=== PATIENT | female | born 1995 | race Caucasian/White ===

== ENCOUNTER 2022-05-07 10:03 | Day surgery (SDC) | payer OTHER ==
[2022-03-25 09:51] VITALS: BMI 22.6
--- NOTE | 2022-05-07 08:54 | P.GSHP ---
History of Present Illness H&P Date: 05/07/22 CHIEF COMPLAINT: Colon screen HISTORY OF PRESENT ILLNESS: The patient is a 26-year-old female who presents for colon screen. Lower endoscopy was offered for further evaluation and management. PAST MEDICAL HISTORY: Please see list. PAST SURGICAL HISTORY: Please see list. MEDICATIONS: Please see list. ALLERGIES: Please see list. SOCIAL HISTORY: No illicit drug use FAMILY HISTORY: No reports of Crohn disease or ulcerative colitis. REVIEW OF ORGAN SYSTEMS: CONSTITUTIONAL: No reports of fevers or chills. PHYSICAL EXAM: VITAL SIGNS: Stable GENERAL: Well-developed pleasant in no acute distress. HEENT: No scleral icterus. Extraocular movements grossly intact. Moist buccal mucosa. NECK: Supple without lymphadenopathy. CHEST: Unlabored respirations. Equal bilateral excursions. CARDIOVASCULAR: Regular rate and rhythm. Distal 2+ pulses. ABDOMEN: Soft, nontender, nondistended. MUSCULOSKELETAL: No clubbing, cyanosis, or edema. ASSESSMENT: 1. Colon screen. PLAN: 1. Recommend proceeding with a lower endoscopy Past Medical History Past Medical History: GERD/Reflux Additional Past Medical History / Comment(s): ABD. PAIN AND BLEEDING WTH BM, hiatal hernia, frequent back pain, scoliosis, hx gestational diabetes., breast feeding., pain right hip -states bone on bone. History of Any Multi-Drug Resistant Organisms: None Reported Additional Past Surgical History / Comment(s): COLONOSCOPY Past Anesthesia/Blood Transfusion Reactions: No Reported Reaction Past Psychological History: ADD/ADHD, Anxiety, Bipolar, Depression Additional Psychological History / Comment(s): BORDERLINE PERSONALITY DISORDER Smoking Status: Former smoker Past Alcohol Use History: None Reported Additional Past Alcohol Use History / Comment(s): QUIT SMOKING DEC 2021 Past Drug Use History: Marijuana Additional Drug Use History / Comment(s): OCCASIONAL MARIJUANA USE-INSTRUCTED TO HOLD FOR AT LEAST 24 HOURS PRIOR TO PROCEDURE - Past Family History Mother Family Medical History: Cancer Medications and Allergies Home Medications Medication Instructions Recorded Confirmed Type Etonogestrel [Nexplanon] 68 mg SQ DIRECTED 05/06/22 05/06/22 History Allergies Allergy/AdvReac Type Severity Reaction Status Date / Time No Known Allergies Allergy Verified 05/06/22 15:05
[~2022-05-07 10:03] MED LIST: LACTATED RINGERS 1,000 ML IV SCH; LIDOCAINE 1% (10MG/ML) FOR IV START INTRADERMA PRN
[2022-05-07 11:41] VITALS: RESP 18; TEMP 97
[2022-05-07] MEDS ORDERED: PROPOFOL 10 MG/ML 20 ML VIAL IV ONE (12:39)
--- NOTE | 2022-05-07 13:04 | P.PCN ---
Date of Procedure: 05/07/22 Description of Procedure: PREOPERATIVE DIAGNOSIS: Rectal bleeding POSTOPERATIVE DIAGNOSIS: Poor prep OPERATION: Colonoscopy terminated at sigmoid colon due to solid stool, sigmoidoscopy SURGEON: Jazmin Stuart MD. ANESTHESIA: MAC. INDICATIONS: The patient is a 26-year-old female who presents with gastrointestinal bleeding. Benefits and risks were described and informed consent was obtained. DESCRIPTION OF PROCEDURE: The patient had undergone prep. She had been brought into the operating room and laid in the left lateral decubitus position. After adequate intravenous sedation, the rectum was examined with 2% lidocaine jelly. No external hemorrhoids were encountered. The rectal tone was loose. No lesions were palpated in the rectal vault. An Olympus colonoscope was advanced along the rectum to a very tortuous sigmoid colon. The scope was then exchanged for a pediatric colonoscope. The scope was passed to 30 cm from the anal verge with moderate solid stool identified for poor prep. The procedure was terminated due to poor prep. FINDINGS: [place]ronchik preparation quality scale 5 (1-5) Tortuous sigmoid colon No external prolapsed hemorrhoids. Scope advanced to sigmoid colon at 30 cm. Solid stool in sigmoid colon RECOMMENDATIONS: Repeat colonoscopy with appropriate prep Plan - Discharge Summary Discharge Rx Participant: No New Discharge Prescriptions: Continue Etonogestrel [Nexplanon] 68 mg SQ DIRECTED Discharge Medication List Etonogestrel [Nexplanon] 68 mg SQ DIRECTED 05/06/22 [History] Follow up Appointment(s)/Referral(s): Jazmin Stuart MD [STAFF PHYSICIAN] - 05/13/22 Patient Instructions/Handouts: Colonoscopy (DC) Discharge Disposition: HOME SELF-CARE
[2022-05-07 13:20] VITALS: BP 98/58; PULSE 68
== END 2022-05-07 13:39 | disposition home or self-care (01) ==
LOC: ORWHC2ENDO 10:03
PROVIDERS: ATTEND Surgery Plastic and Reconstructive Surgery
DX: K62.5 Hemorrhage of anus and rectum (principal); R10.9 Unspecified abdominal pain; Q43.8 Other specified congenital malformations of intestine; K21.9 Gastro-esophageal reflux disease without esophagitis; K44.9 Diaphragmatic hernia without obstruction or gangrene; M25.551 Pain in right hip; F90.9 Attention-deficit hyperactivity disorder, unspecified type; M41.9 Scoliosis, unspecified; F41.9 Anxiety disorder, unspecified; F31.9 Bipolar disorder, unspecified; F60.3 Borderline personality disorder; Z87.891 Personal history of nicotine dependence; Z80.9 Family history of malignant neoplasm, unspecified; Z79.899 Other long term (current) drug therapy
CPT/HCPCS: 81025; 45330; J2704

== ENCOUNTER 2023-06-08 19:53 | Emergency (ER) | payer OTHER ==
[2023-06-08 20:35] VITALS: TEMP 99
[2023-06-08] MEDS ORDERED: SODIUM CHLORIDE 0.9% 1,000 ML IV ONE (22:10)
--- NOTE | 2023-06-08 22:35 | ED ---
General Adult HPI - General Chief complaint: ENT Stated complaint: facial swelling/headache Time Seen by Provider: 06/08/23 21:10 Source: patient, RN notes reviewed Mode of arrival: ambulatory Limitations: no limitations - History of Present Illness Initial comments: 27-year-old female presents emergency Department with chief complaint of right- sided facial swelling, headache 2 days. She reports that she was evaluated at urgent care yesterday and was given a steroid shot. She reports the headache came on slowly and has been worsening throughout the day. She reports it as 9 out of 10 in pain. She states that she has not taken anything for pain. She has a history of headaches but this feels different from prior headaches. She reports swelling of her right-sided face and below the eye which has improved since yesterday. She also admits to fatigue and generalized malaise. - Related Data Home Medications Medication Instructions Recorded Confirmed Etonogestrel [Nexplanon] 68 mg SQ DIRECTED 05/06/22 06/04/22 Previous Rx's Medication Instructions Recorded Pantoprazole [Protonix] 40 mg PO DAILY #14 tab 06/04/22 Pantoprazole [Protonix] 40 mg PO DAILY #14 tab 07/01/22 Allergies Allergy/AdvReac Type Severity Reaction Status Date / Time No Known Allergies Allergy Verified 06/08/23 20:35 Review of Systems ROS Statement: Those systems with pertinent positive or pertinent negative responses have been documented in the HPI. ROS Other: All systems not noted in ROS Statement are negative. Past Medical History Past Medical History: GERD/Reflux Additional Past Medical History / Comment(s): ABD. PAIN AND BLEEDING WTH BM, hiatal hernia, frequent back pain, scoliosis, hx gestational diabetes., breast feeding., pain right hip -states bone on bone. History of Any Multi-Drug Resistant Organisms: None Reported Additional Past Surgical History / Comment(s): COLONOSCOPY Past Anesthesia/Blood Transfusion Reactions: No Reported Reaction Past Psychological History: ADD/ADHD, Anxiety, Bipolar, Depression Smoking Status: Former smoker, Vaper Past Alcohol Use History: None Reported Past Drug Use History: None Reported - Past Family History Mother Family Medical History: Cancer General Exam Limitations: no limitations General appearance: alert, in no apparent distress Head exam: Present: atraumatic, normocephalic, normal inspection Eye exam: Present: normal appearance, PERRL, EOMI, periorbital swelling. Absent: scleral icterus, conjunctival injection, periorbital tenderness ENT exam: Present: normal exam, normal oropharynx, mucous membranes moist, TM's normal bilaterally, normal external ear exam Neck exam: Present: normal inspection, full ROM. Absent: tenderness, meningismus (Negative Kernig's, Brudzinski), lymphadenopathy Respiratory exam: Present: normal lung sounds bilaterally. Absent: respiratory distress, wheezes, rales, rhonchi, stridor Cardiovascular Exam: Present: regular rate, normal rhythm, normal heart sounds. Absent: systolic murmur, diastolic murmur, rubs, gallop, clicks GI/Abdominal exam: Present: soft, normal bowel sounds. Absent: distended, tenderness, guarding, rebound, rigid Extremities exam: Present: normal inspection, full ROM, normal capillary refill. Absent: tenderness, pedal edema, joint swelling, calf tenderness Back exam: Present: normal inspection, full ROM. Absent: tenderness, CVA tenderness (R), CVA tenderness (L) Neurological exam: Present: alert, oriented X3, CN II-XII intact, normal gait Psychiatric exam: Present: normal affect, normal mood Skin exam: Present: warm, dry, intact, normal color. Absent: rash Course Vital Signs 06/08/23 06/09/23 20:30 00:29 Temperature 99.0 F Pulse Rate 91 66 Respiratory 20 18 Rate Blood Pressure 110/76 108/72 O2 Sat by Pulse 99 98 Oximetry Medical Decision Making - Medical Decision Making Was pt. sent in by a medical professional or institution (, PA, UI ARCHITECT, urgent care, hospital, or fpc...) When possible be specific @ -No Did you speak to anyone other than the patient for history (EMS, parent, family, police, friend...)? What history was obtained from this source @ -No Did you review nursing and triage notes (agree or disagree)? Why? @ -I reviewed and agree with nursing and triage notes Were old charts reviewed (outside hosp., previous admission, EMS record, old EKG, old radiological studies, urgent care reports/EKG's, fpc records)? Report findings @ -No old charts were reviewed Differential Diagnosis (chest pain, altered mental status, abdominal pain women, abdominal pain men, vaginal bleeding, weakness, fever, dyspnea, syncope, headache, dizziness, GI bleed, back pain, seizure, CVA, palpatations, mental health, musculoskeletal)? @ -Otitis media, otitis externa, viral URI, Covid, influenza, RSV, meningitis, subarachnoid hemorrhage, this list is not all-inclusive EKG interpreted by me (3pts min.). @ -None X-rays interpreted by me (1pt min.). @ -Chest x-ray shows no evidence for acute cardiopulmonary process CT interpreted by me (1pt min.). @ -CT brain shows no evidence of acute intracranial hemorrhage U/S interpreted by me (1pt. min.). @ -None done What testing was considered but not performed or refused? (CT, X-rays, U/S, labs)? Why? @ -None What meds were considered but not given or refused? Why? @ -None Did you discuss the management of the patient with other professionals (professionals i.e. , PA, UI ARCHITECT, lab, RT, psych nurse, social work lecturer, web programmer, teacher, adult parole officer, family independence case manager)? Give summary @ -No Was smoking cessation discussed for >3mins.? @ -No Was critical care preformed (if so, how long)? @ -No Were there social determinants of health that impacted care today? How? (Homelessness, low income, unemployed, alcoholism, drug addiction, transportation, low edu. Level, literacy, decrease access to med. care, detention, rehab)? @ -No Was there de-escalation of care discussed even if they declined (Discuss DNR or withdrawal of care, Hospice)? DNR status @ -No What co-morbidities impacted this encounter? (DM, HTN, Smoking, COPD, CAD, Cancer, CVA, ARF, Chemo, Hep., AIDS, mental health diagnosis, sleep apnea, morbid obesity)? @ -None Was patient admitted / discharged? Hospital course, mention meds given and route, prescriptions, significant lab abnormalities, going to OR and other pertinent info. @ -Discharged. Patient presented to emergency department with chief complaint of right-sided facial swelling and headache 2 days. She was evaluated at urgent care yesterday and was given a shot of steroids which improved the swelling and face. She states that she has been taking Benadryl but no other medications. She reports a headache that is progressively worsening over the past day and then constant. She has not taken anything to try to relieve this headache. On examination, patient is well-appearing, afebrile, negative Kernig's and Brudzinski signs, lungs CTA bilaterally, cardiac regular rate and rhythm, abdomen soft nontender, CN II through XII intact. Covid, influenza, RSV swab negative. CBC and CMP non actionable. X-ray shows no evidence of acute process. CT brain showed no evidence of acute intracranial process. Patient was advised of these findings and to follow-up with her primary care provider Dr. Ghotra. Patient is understanding and agreeable with the plan. Patient stable at time of discharge. Case discussed with my attending, Dr. Melgar Undiagnosed new problem with uncertain prognosis? @ -No Drug Therapy requiring intensive monitoring for toxicity (Heparin, Nitro, Insulin, Cardizem)? @ -No Were any procedures done? @ -No Diagnosis/symptom? @ -viral syndrome Acute, or Chronic, or Acute on Chronic? @ -acute Uncomplicated (without systemic symptoms) or Complicated (systemic symptoms)? @ -uncomplicated Side effects of treatment? @ -No Exacerbation, Progression, or Severe Exacerbation? @ -No Poses a threat to life or bodily function? How? (Chest pain, [place], [place], pneumonia, PE, COPD, DKA, ARF, appy, cholecystitis, CVA, Diverticulitis, Homicidal, Suicid al, threat to staff... and all critical care pts) @ -No - Lab Data Result diagrams: 06/08/23 22:27 06/08/23 22:27 Lab Results 06/08/23 06/08/23 06/08/23 Range/Units 21:51 22:27 22:27 WBC 11.0 H (3.8-10.6) k/uL RBC 4.60 (3.80-5.40) m/uL Hgb 13.5 (11.4-16.0) gm/dL Hct 40.0 (34.0-46.0) % MCV 86.9 (80.0-100.0) fL MCH 29.4 (25.0-35.0) pg MCHC 33.9 (31.0-37.0) g/dL RDW 12.8 (11.5-15.5) % Plt Count 171 (150-450) k/uL MPV 8.6 Neutrophils % 69 % Lymphocytes % 22 % Monocytes % 5 % Eosinophils % 2 % Basophils % 0 % Neutrophils # 7.6 (1.3-7.7) k/uL Lymphocytes # 2.4 (1.0-4.8) k/uL Monocytes # 0.6 (0-1.0) k/uL Eosinophils # 0.2 (0-0.7) k/uL Basophils # 0.0 (0-0.2) k/uL PT (9.0-12.0) sec INR (<1.2) APTT (22.0-30.0) sec Sodium 140 (137-145) mmol/L Potassium 3.6 (3.5-5.1) mmol/L Chloride 107 (98-107) mmol/L Carbon Dioxide 22 (22-30) mmol/L Anion Gap 11 mmol/L BUN 11 (7-17) mg/dL Creatinine 0.65 (0.52-1.04) mg/dL Est GFR (CKD-EPI)AfAm >90 (>60 ml/min/1.73 sqM) Est GFR (CKD-EPI)NonAf >90 (>60 ml/min/1.73 sqM) Glucose 117 H (74-99) mg/dL Plasma Lactic Acid Yassine (0.7-2.0) mmol/L Calcium 8.9 (8.4-10.2) mg/dL Total Bilirubin 0.3 (0.2-1.3) mg/dL AST 22 (14-36) U/L ALT 19 (4-34) U/L Alkaline Phosphatase 55 (38-126) U/L C-Reactive Protein <0.5 (<1.0) mg/dL Total Protein 7.6 (6.3-8.2) g/dL Albumin 4.5 (3.5-5.0) g/dL Influenza Type A (PCR) Not Detected (Not Detectd) Influenza Type B (PCR) Not Detected (Not Detectd) RSV (PCR) Not Detected (Not Detectd) SARS-CoV-2 (PCR) Not Detected (Not Detectd) 06/08/23 06/08/23 Range/Units 22:27 22:27 WBC (3.8-10.6) k/uL RBC (3.80-5.40) m/uL Hgb (11.4-16.0) gm/dL Hct (34.0-46.0) % MCV (80.0-100.0) fL MCH (25.0-35.0) pg MCHC (31.0-37.0) g/dL RDW (11.5-15.5) % Plt Count (150-450) k/uL MPV Neutrophils % % Lymphocytes % % Monocytes % % Eosinophils % % Basophils % % Neutrophils # (1.3-7.7) k/uL Lymphocytes # (1.0-4.8) k/uL Monocytes # (0-1.0) k/uL Eosinophils # (0-0.7) k/uL Basophils # (0-0.2) k/uL PT 10.2 (9.0-12.0) sec INR 1.0 (<1.2) APTT 23.0 (22.0-30.0) sec Sodium (137-145) mmol/L Potassium (3.5-5.1) mmol/L Chloride (98-107) mmol/L Carbon Dioxide (22-30) mmol/L Anion Gap mmol/L BUN (7-17) mg/dL Creatinine (0.52-1.04) mg/dL Est GFR (CKD-EPI)AfAm (>60 ml/min/1.73 sqM) Est GFR (CKD-EPI)NonAf (>60 ml/min/1.73 sqM) Glucose (74-99) mg/dL Plasma Lactic Acid Yassine 1.5 (0.7-2.0) mmol/L Calcium (8.4-10.2) mg/dL Total Bilirubin (0.2-1.3) mg/dL AST (14-36) U/L ALT (4-34) U/L Alkaline Phosphatase (38-126) U/L C-Reactive Protein (<1.0) mg/dL Total Protein (6.3-8.2) g/dL Albumin (3.5-5.0) g/dL Influenza Type A (PCR) (Not Detectd) Influenza Type B (PCR) (Not Detectd) RSV (PCR) (Not Detectd) SARS-CoV-2 (PCR) (Not Detectd) Disposition Clinical Impression: Viral syndrome Disposition: HOME SELF-CARE Condition: Stable Instructions (If sedation given, give patient instructions): Viral Syndrome (ED) Additional Instructions: Please follow up with Dr. Ghotra. Return to the emergency department for new or worsening symptoms. Is patient prescribed a controlled substance at d/c from ED?: No Referrals: Nicholas Ghotra MD [Primary Care Provider] - 1-2 days Time of Disposition: 00:12
[2023-06-08 22:50] LABS: Basophils % (A) 0 %; Eosinophils # (A) 0.2 k/uL (0-0.7); Eosinophils % (A) 2 %; HGB 13.5 gm/dL (11.4-16.0); Lymphocytes # (A) 2.4 k/uL (1.0-4.8); Lymphocytes % (A) 22 %; MCH 29.4 pg (25.0-35.0); MCHC 33.9 g/dL (31.0-37.0); MCV 86.9 fL (80.0-100.0); Mean Platelet Volume 8.6; Monocytes # (A) 0.6 k/uL (0-1.0); Monocytes % (A) 5 %; Neutrophils # (A) 7.6 k/uL (1.3-7.7); Neutrophils % (A) 69 %; Platelet Count 171 k/uL (150-450); RDW 12.8 % (11.5-15.5)
[2023-06-08 23:01] LABS: Prothrombin Time 10.2 sec (9.0-12.0)
[2023-06-08 23:04] LABS: ALT 19 U/L (4-34); AST 22 U/L (14-36); African American GFR (CKD) >90 (>60 ml/min/1.73 sqM); Albumin 4.5 g/dL (3.5-5.0); Alkaline Phosphatase 55 U/L (38-126); Anion Gap 11 mmol/L; Blood Urea Nitrogen 11 mg/dL (7-17); C Reactive Protein <0.5 mg/dL (<1.0); Calcium 8.9 mg/dL (8.4-10.2); Carbon Dioxide 22 mmol/L (22-30); Chloride 107 mmol/L (98-107); Glucose 117 mg/dL (74-99); Non-African American GFR(CKD) >90 (>60 ml/min/1.73 sqM); Potassium 3.6 mmol/L (3.5-5.1); Sodium 140 mmol/L (137-145); Total Bilirubin 0.3 mg/dL (0.2-1.3); Total Protein 7.6 g/dL (6.3-8.2)
--- NOTE | 2023-06-08 23:07 | XR ---
EXAM: XR Chest, 2 Views CLINICAL HISTORY: ITS.REASON XR Reason: sob TECHNIQUE: Frontal and lateral views of the chest. COMPARISON: No relevant prior studies available. FINDINGS: Lungs: Unremarkable. No consolidation. Pleural space: Unremarkable. No pneumothorax. Heart: Unremarkable. No cardiomegaly. Mediastinum: Unremarkable. Bones/joints: Unremarkable. IMPRESSION: Normal chest x-rays.
--- NOTE | 2023-06-08 23:28 | CT ---
EXAM: CT Head Without Intravenous Contrast CLINICAL HISTORY: ITS.REASON CT Reason: pain TECHNIQUE: Axial computed tomography images of the head/brain without intravenous contrast. CTDI is 49.2 mGy and DLP is 1144.4 mGy-cm. This CT exam was performed using one or more of the following dose reduction techniques: automated exposure control, adjustment of the mA and/or kV according to patient size, and/or use of iterative reconstruction technique. COMPARISON: No relevant prior studies available. FINDINGS: No acute intracranial hemorrhage. No midline shift or mass effect. The territorial acosta-white matter differentiation is maintained throughout. The ventricles and sulci are commensurate with age. The visualized orbits appear grossly unremarkable. The calvarium is intact. The visualized paranasal sinuses and mastoid air cells are grossly clear. IMPRESSION: No acute intracranial hemorrhage, midline shift, or mass effect.
[2023-06-09 00:30] VITALS: BP 108/72; PULSE 66; RESP 18
[2023-06-09 00:53] LABS: Amorphous Sediment,Urine Rare /hpf; Appearance,Urine Cloudy (Clear); Bacteria,Urine Moderate /hpf; Bilirubin,Urine Negative (Negative); Blood,Urine Large (Negative); Color,Urine Yellow; Glucose,Urine (UA) 1+ (Negative); Ketones,Urine Negative (Negative); Leukocyte Esterase,Urine Negative (Negative); Mucus,Urine Occasional /hpf; Nitrite,Urine Negative (Negative); Protein,Urine Trace (Negative); RBC,Urine 2 /hpf (0-5); Specific Gravity,Urine 1.028 (1.001-1.035); Squamous Epithelial Cell,Urine 21 /hpf (0-4); Urobilinogen,Urine <2.0 mg/dL (<2.0); WBC,Urine 2 /hpf (0-5)
== END 2023-06-09 00:30 | disposition home or self-care (01) ==
LOC: EC 19:53
DX: B34.9 Viral infection, unspecified (principal); F17.290 Nicotine dependence, other tobacco product, uncomplicated; Z20.822 Contact with and (suspected) exposure to COVID-19
CPT/HCPCS: 36415; 70450; 71046; 80053; 81001; 81025; 83605; 85025; 85610; 85730; 86140; 87636; 96360; 96361; 99284

== ENCOUNTER 2024-01-31 12:38 | Emergency (ER) | payer OTHER ==
--- NOTE | 2024-01-31 13:06 | ED ---
Back Pain HPI - General Source: patient, RN notes reviewed <Radha Cortés - Last Filed: 01/31/24 13:05> - General Source: patient, RN notes reviewed Mode of arrival: ambulatory Limitations: no limitations <Mabel Brannon - Last Filed: 01/31/24 16:09> - General Stated Complaint: Back Pain Time Seen by Provider: 01/31/24 12:50 - History of Present Illness Initial Comments: Notethis is a 28-year-old female with complaint of back pain in her thoracic and lumbar region patient denies fall or injury, states that pain has been ongoing for the past few years but is worse with movement over the past week. Patient has a history of scoliosis due to a broken hip when she was 19. Denies saddle anesthesias, paresthesias, loss of bladder or bowel incontinence. (Radha Cortés) 28-year-old female presenting to the ER with chief complaint of back pain. P atient states she has scoliosis due to a hip injury and using crutches about 10 years ago. She reports for the past week her back pain has been exacerbated. She reports most of her pain is in her lumbar region. She states movements make it worse. No known injuries or traumas. She has been using [id number] Tylenol and Motrin and lidocaine patches without relief. She states that she was scheduled for an MRI on Thursday but was unable to attend the appointment due to work. She denies any fevers, chills, saddle paresthesias, bowel or bladder incontinence. (Mabel Brannon) - Related Data Home Medications Medication Instructions Recorded Confirmed Etonogestrel [Nexplanon] 68 mg SQ DIRECTED 05/06/22 06/04/22 Previous Rx's Medication Instructions Recorded Pantoprazole [Protonix] 40 mg PO DAILY #14 tab 06/04/22 Pantoprazole [Protonix] 40 mg PO DAILY #14 tab 07/01/22 Cyclobenzaprine [Flexeril] 5 mg PO TID PRN #15 tablet 01/31/24 Lidocaine 5% Patch [Lidoderm 5% 1 patch TOPICAL DAILY #10 patch 01/31/24 Patch] predniSONE 50 mg PO DAILY #5 tab 01/31/24 Allergies Allergy/AdvReac Type Severity Reaction Status Date / Time No Known Allergies Allergy Verified 06/08/23 20:35 Review of Systems ROS Other: All systems not noted in ROS Statement are negative. <Radha Cortés - Last Filed: 01/31/24 13:05> ROS Other: All systems not noted in ROS Statement are negative. <Mabel Brannon - Last Filed: 01/31/24 16:09> ROS Statement: Those systems with pertinent positive or pertinent negative responses have been documented in the HPI. Past Medical History Past Medical History: GERD/Reflux Additional Past Medical History / Comment(s): ABD. PAIN AND BLEEDING WTH BM, hiatal hernia, frequent back pain, scoliosis, hx gestational diabetes., breast feeding., pain right hip -states bone on bone. History of Any Multi-Drug Resistant Organisms: None Reported Additional Past Surgical History / Comment(s): COLONOSCOPY Past Anesthesia/Blood Transfusion Reactions: No Reported Reaction Past Psychological History: ADD/ADHD, Anxiety, Bipolar, Depression Smoking Status: Former smoker, Vaper Past Alcohol Use History: None Reported Past Drug Use History: None Reported - Past Family History Mother Family Medical History: Cancer <Radha Cortés - Last Filed: 01/31/24 13:05> General Exam <Radha Cortés - Last Filed: 01/31/24 13:05> General appearance: alert, in no apparent distress Head exam: Present: atraumatic, normocephalic, normal inspection Respiratory exam: Present: normal lung sounds bilaterally. Absent: respiratory distress, wheezes, rales, rhonchi, stridor Cardiovascular Exam: Present: regular rate, normal rhythm, normal heart sounds. Absent: systolic murmur, diastolic murmur, rubs, gallop, clicks Extremities exam: Present: normal inspection, full ROM, normal capillary refill. Absent: tenderness, pedal edema, joint swelling, calf tenderness Back exam: Present: normal inspection, tenderness (Lumbar paraspinal muscles. Pain with bilateral straight leg raise. 2+ bilateral dorsalis pedis pulse. sensation intact. Strength is equal) Psychiatric exam: Present: normal affect, normal mood <Mabel Brannon - Last Filed: 01/31/24 16:09> - General Exam Comments Initial Comments: Visual Physical Exam Vital signs reviewed General: Well-appearing, nontoxic, no acute distress. Head: Normocephalic, atraumatic Eyes: PERRLA, EOMI ENT: Airway patent Chest: Nonlabored breathing Skin: No visual rash, normal skin tone Neuro: Alert and oriented 3 Musculoskeletal: No gross abnormalities (Radha Cortés) Course Vital Signs 01/31/24 13:36 Temperature 97.7 F Pulse Rate 85 Respiratory 20 Rate Blood Pressure 116/82 O2 Sat by Pulse 20 L Oximetry Medical Decision Making <Radha Cortés - Last Filed: 01/31/24 13:05> - Radiology Data Radiology results: report reviewed, image reviewed <Mabel Brannon - Last Filed: 01/31/24 16:09> - Medical Decision Making I completed the quick note portion of this chart signed Radha Cortés PA-C (Radha Cortés) Was pt. sent in by a medical professional or institution (AUBREE Jansen, FEATHER SEPARATOR, urgent care, hospital, or longterm...) When possible be specific @ -No Did you speak to anyone other than the patient for history (EMS, parent, family, police, friend...)? What history was obtained from this source @ -No Did you review nursing and triage notes (agree or disagree)? Why? @ -I reviewed and agree with nursing and triage notes Were old charts reviewed (outside hosp., previous admission, EMS record, old EKG, old radiological studies, urgent care reports/EKG's, longterm records)? Report findings @ -No old charts were reviewed Differential Diagnosis (chest pain, altered mental status, abdominal pain women, abdominal pain men, vaginal bleeding, weakness, fever, dyspnea, syncope, headache, dizziness, GI bleed, back pain, seizure, CVA, palpatations, mental health, musculoskeletal)? @ -Differential Back Pain:Strain, zoster, cauda equina syndrome, epidural abscess, vertebral osteomyelitis, discitis, fracture, subluxation, disc herniation, DJD, spinal stenosis, dissection, AAA, pancreatitis, peptic ulcer disease, pyelonephritis, kidney stone, this is not meant to be an all-inclusive list. EKG interpreted by me (3pts min.). @ -None X-rays interpreted by me (1pt min.). @ -Spinal x-ray interpreted by me negative for acute process. CT interpreted by me (1pt min.). @ -None done U/S interpreted by me (1pt. min.). @ -None done What testing was considered but not performed or refused? (CT, X-rays, U/S, labs)? Why? @ -None What meds were considered but not given or refused? Why? @ -None Did you discuss the management of the patient with other professionals (professionals i.e. , PA, FEATHER SEPARATOR, lab, RT, psych nurse, geriatric social work professor, dairy clerk, teacher, labor relations officer, family service caseworker)? Give summary @ -No Was smoking cessation discussed for >3mins.? @ -No Was critical care preformed (if so, how long)? @ -No Were there social determinants of health that impacted care today? How? (Homelessness, low income, unemployed, alcoholism, drug addiction, transportation, low edu. Level, literacy, decrease access to med. care, [facility], rehab)? @ -No Was there de-escalation of care discussed even if they declined (Discuss DNR or withdrawal of care, Hospice)? DNR status @ -No What co-morbidities impacted this encounter? (DM, HTN, Smoking, COPD, CAD, Cancer, CVA, ARF, Chemo, Hep., AIDS, mental health diagnosis, sleep apnea, morbid obesity)? @ -None Was patient admitted / discharged? Hospital course, mention meds given and route, prescriptions, significant lab abnormalities, going to OR and other pertinent info. @ -Discharge. 28-year-old female presented to the ER with chief complaint of back pain. History and physical exam completed. Vitals stable. Patient in no signs of acute distress and nontoxic-appearing. No acute neurological findings on exam. Bilateral lower extremities neurovascularly intact. No red flag back pain symptoms indicative of cauda equina syndrome. Patient received by mouth Tylenol for pain control in the ER. X-rays obtained negative for acute process. Results discussed with patient, all questions answered. Prednisone, Flexeril and lidocaine patches prescribed. I advised her to follow-up with physician who ordered MRI of the back in the next 1 to 2 days. Strict return parameters discussed. Patient discharged stable condition with follow-up to PCP. Patient verbally expressed understanding and agreement with care plan. Case discussed with ED attending, Dr. Moran. Undiagnosed new problem with uncertain prognosis? @ -No Drug Therapy requiring intensive monitoring for toxicity (Heparin, Nitro, Insulin, Cardizem)? @ -No Were any procedures done? @ -No Diagnosis/symptom? @ -Back pain Acute, or Chronic, or Acute on Chronic? @ -Acute Uncomplicated (without systemic symptoms) or Complicated (systemic symptoms)? @ -Uncomplicated Side effects of treatment? @ -No Exacerbation, Progression, or Severe Exacerbation? @ -No Poses a threat to life or bodily function? How? (Chest pain, [place], IA, pneumonia, PE, COPD, DKA, ARF, appy, cholecystitis, CVA, Diverticulitis, Homicidal, Pinky cidal, threat to staff... and all critical care pts) @ -No (Mabel Brannon) Disposition <Radha Cortés - Last Filed: 01/31/24 13:05> Is patient prescribed a controlled substance at d/c from ED?: No Time of Disposition: 15:56 <Mabel Brannon - Last Filed: 01/31/24 16:09> Clinical Impression: Back pain Disposition: HOME SELF-CARE Condition: Stable Instructions (If sedation given, give patient instructions): Acute Low Back Pain (ED) Additional Instructions: Follow-up with back specialist to reschedule MRI. Return to the ER for new or worsening concerns. Prescriptions: Cyclobenzaprine [Flexeril] 5 mg PO TID PRN #15 tablet PRN Reason: Muscle Spasm Lidocaine 5% Patch [Lidoderm 5% Patch] 1 patch TOPICAL DAILY #10 patch predniSONE 50 mg PO DAILY #5 tab Referrals: Nicholas Ghotra MD [Primary Care Provider] - 1-2 days
--- NOTE | 2024-01-31 13:35 | XR ---
EXAMINATION TYPE: XR spine complete AP and Lat DATE OF EXAM: 01/31/2024 1:30 PM CLINICAL INDICATION:Female, 28 years old with history of pain; [facility] COMPARISON: None TECHNIQUE: XR spine complete AP and Lat views of the spine in Frontal and lateral projections. FINDINGS: No evidence of acute fracture. There is no evidence of disk space narrowing or loss of vertebral bod y height. There is normal alignment of the thoracic vertebral bodies. IMPRESSION: No acute osseous pathology.
[2024-01-31] MEDS: ACETAMINOPHEN TAB 325 MG TAB PO STA (15:59)
[2024-01-31 16:42] VITALS: BP 120/78; PULSE 78; RESP 18; TEMP 98.1
== END 2024-01-31 16:04 | disposition home or self-care (01) ==
LOC: EC 12:38
DX: M54.50 Low back pain, unspecified (principal); M54.6 Pain in thoracic spine; F17.290 Nicotine dependence, other tobacco product, uncomplicated
CPT/HCPCS: 72082; 99283

== ENCOUNTER 2024-08-13 22:48 | Emergency (ER) | payer SELFPAY ==
[2024-08-13 22:55] VITALS: TEMP 97.7
--- NOTE | 2024-08-13 23:06 | ED ---
Fall HPI - General Chief Complaint: Fall Stated Complaint: Fall/LOC Time Seen by Provider: 08/13/24 22:49 Source: patient, EMS, RN notes reviewed Mode of arrival: EMS Limitations: no limitations - History of Present Illness Initial Comments: This is a 29-year-old female who presents to the emergency department for a fall. Patient was at the bar with her friends this evening and after consuming alcohol she fell and hit her head on a metal bar of a chair. Bystanders report a loss of consciousness. They are unsure how long she was unconscious for. Re ports a headache and nausea as well as photophobia. However, states that she has a history of chronic migraines and believes she may also have one of these flaring up on her, contributing to her symptoms. She was given Zofran en route by EMS with some improvement in nausea. Denies sustaining any additional injuries or having any other complaints at this time. MD Complaint: fall - Related Data Home Medications Medication Instructions Recorded Confirmed Etonogestrel [Nexplanon] 68 mg SQ DIRECTED 05/06/22 06/04/22 Previous Rx's Medication Instructions Recorded Pantoprazole [Protonix] 40 mg PO DAILY #14 tab 06/04/22 Pantoprazole [Protonix] 40 mg PO DAILY #14 tab 07/01/22 Cyclobenzaprine [Flexeril] 5 mg PO TID PRN #15 tablet 01/31/24 Lidocaine 5% Patch [Lidoderm 5% 1 patch TOPICAL DAILY #10 patch 01/31/24 Patch] predniSONE 50 mg PO DAILY #5 tab 01/31/24 Allergies Allergy/AdvReac Type Severity Reaction Status Date / Time Latex, Natural Rubber Allergy Rash/Hives Verified 08/13/24 22:55 Review of Systems ROS Statement: Those systems with pertinent positive or pertinent negative responses have been documented in the HPI. ROS Other: All systems not noted in ROS Statement are negative. Past Medical History Past Medical History: GERD/Reflux Additional Past Medical History / Comment(s): ABD. PAIN AND BLEEDING WTH BM, hiatal hernia, frequent back pain, scoliosis, hx gestational diabetes., breast feeding., pain right hip -states bone on bone. History of Any Multi-Drug Resistant Organisms: None Reported Additional Past Surgical History / Comment(s): COLONOSCOPY Past Anesthesia/Blood Transfusion Reactions: No Reported Reaction Past Psychological History: ADD/ADHD, Anxiety, Bipolar, Depression Smoking Status: Former smoker, Vaper Past Alcohol Use History: None Reported Past Drug Use History: None Reported - Past Family History Mother Family Medical History: Cancer General Exam General appearance: alert, in no apparent distress Head exam: Present: atraumatic Eye exam: Present: normal appearance, PERRL, EOMI. Absent: scleral icterus, conjunctival injection, periorbital swelling Respiratory exam: Present: normal lung sounds bilaterally. Absent: respiratory distress, wheezes, rales, rhonchi, stridor Cardiovascular Exam: Present: regular rate, normal rhythm, normal heart sounds. Absent: systolic murmur, diastolic murmur, rubs, gallop, clicks Neurological exam: Present: alert, oriented X3, CN II-XII intact Psychiatric exam: Present: normal affect, normal mood Skin exam: Present: warm, dry, intact, normal color. Absent: rash Course Vital Signs 08/13/24 08/14/24 08/14/24 22:49 01:10 01:31 Temperature 97.7 F Pulse Rate 106 H 88 Respiratory 17 16 Rate Blood Pressure 102/62 113/73 108/72 O2 Sat by Pulse 99 98 Oximetry Medical Decision Making - Medical Decision Making This is a 29 year old female who presents to the emergency department for a head injury. Was pt. sent in by a medical professional or institution? @ -No Did you speak to anyone other than the patient for history? @ -No Did you review nursing and triage notes? @ -Yes, and I agree, it is accurate with regards to the patient's symptoms. Were old charts reviewed? @ -No Differential Diagnosis? @ -Differential Diagnosis Head Injury: Contusion, hematoma, intracranial hemorrhage, skull fracture, whiplash, concussion, this is not meant to be an all-inclusive list. EKG interpreted by me (3pts min.)? @ -Not obtained X-rays interpreted by me (1pt min.)? @ -Not obtained CT interpreted by me (1pt min.)? @ -Computed tomography scan of the brain and c-spine obtained. My interpretation identifies no evidence of an acute intracranial hemorrhage, skull fracture, or cervical spine fracture. U/S interpreted by me (1pt. min.)? @ -Not obtained What testing was considered but not performed? (CT, X-rays, U/S, labs)? Why? @ -None What meds were considered but not given? Why? @ -None Did you discuss the management of the patient with other professionals? @ -No Did you reconcile home meds? @ -No Was smoking cessation discussed for >3mins.? @ -No Was critical care preformed (if so, how long)? @ -No Were there social determinants of health that impacted care today? How? (Homelessness, low income, unemployed, alcoholism, drug addiction, transportation, low edu. Level, literacy, decrease access to med. care, alf, rehab)? @ -No Was there de-escalation of care discussed even if they declined? (Discuss DNR or withdrawal of care, Hospice)? @ -No What co-morbidities impacted this encounter? (DM, HTN, Smoking, COPD, CAD, Cancer, CVA, Hep., AIDS, mental health diagnosis, sleep apnea, morbid obesity)? @ -None Was patient admitted / discharged? @ -Discharged. CT scan of the brain and C-spine obtained revealing no acute process. Headache was managed in the emergency department. She was up and ambulating without difficulty. She was also tolerating oral intake. Advised ibuprofen and Tylenol as needed for any additional headaches. Patient discharged home with her friends in stable condition. Case discussed with ED attending Dr. Guillen. Return precautions reviewed in depth, the patient is instructed to return to the emergency department with any new, worsening, or concerning symptoms. Patient verbalized understanding. Undiagnosed new problem with uncertain prognosis? @ -None Drug Therapy requiring intensive monitoring for toxicity (Heparin, Nitro, Insulin, Cardizem)? @ -None Were any procedures done? @ -None Diagnosis/symptom? @ -Fall, head injury Acute, or Chronic, or Acute on Chronic? @ -Acute Uncomplicated (without systemic symptoms) or Complicated (systemic symptoms)? @ -Uncomplicated Side effects of treatment? @ -None Exacerbation, Progression, or Severe Exacerbation] @ -Not applicable Poses a threat to life or bodily function? @ -No - Radiology Data Radiology results: report reviewed, image reviewed Disposition Clinical Impression: Fall, Head injury Disposition: HOME SELF-CARE Instructions (If sedation given, give patient instructions): Head Injury (ED) Additional Instructions: Return to the emergency department with any new, worsening, or concerning symptoms. Alternate with ibuprofen and Tylenol as needed for pain relief. Follow up with your primary care provider in 1-2 days. Is patient prescribed a controlled substance at d/c from ED?: No Referrals: Nicholas Ghotra MD [Primary Care Provider] - 1-2 days Time of Disposition: 01:37
[2024-08-13] MEDS: KETOROLAC 15 MG/ML 1 ML VIAL IVP STA (23:19)
[2024-08-13] MEDS: ONDANSETRON 4 MG/2 ML VIAL IVP STA (23:19)
[2024-08-13] MEDS: SODIUM CHLORIDE 0.9% 1,000 ML IV STA (23:21)
[2024-08-13] MEDS: ACETAMINOPHEN IV (For NPO) 1,000 MG in EMPTY BAG 1 BAG IVPB STA (23:22)
--- NOTE | 2024-08-14 00:50 | CT ---
EXAM: CT Head Without Intravenous Contrast CLINICAL HISTORY: CT Reason: Head injury TECHNIQUE: Axial computed tomography images of the head/brain without intravenous contrast. CTDI is 45.3 mGy and DLP is 1147 mGy-cm. This CT exam was performed using one or more of the following dose reduction techniques: automated exposure control, adjustment of the mA and/or kV according to patient size, and/or use of iterative reconstruction technique. COMPARISON: June 08, 2023 FINDINGS: Brain: Unremarkable. No hemorrhage. No significant white matter disease. No edema. Ventricles: Unremarkable. No ventriculomegaly. Bones/joints: Unremarkable. No acute fracture. Soft tissues: Unremarkable. Sinuses: Mucosal thickening in the maxillary, sphenoid, and right ethmoid sinuses, increased since previous suggesting acute on chronic sinusitis. Mastoid air cells: Unremarkable as visualized. No mastoid effusion. IMPRESSION: 1. Mucosal thickening in the maxillary, sphenoid, and right ethmoid sinuses, increased since previous suggesting acute on chronic sinusitis. 2. Unremarkable appearance of the brain. No intracranial hemorrhage or infarct is seen. EXAM: CT Cervical Spine Without Intravenous Contrast CLINICAL HISTORY: CT Reason: Head injury TECHNIQUE: Axial computed tomography images of the cervical spine without intravenous contrast. CTDI is 9.4 mGy and DLP is 266.6 mGy-cm. This CT exam was performed using one or more of the following dose reduction techniques: automated exposure control, adjustment of the mA and/or kV according to patient size, and/or use of iterative reconstruction technique. COMPARISON: No relevant prior studies available. FINDINGS: Vertebrae: Unremarkable. No acute fracture. Soft tissues: Unremarkable. DISCS/SPINAL CANAL/NEURAL FORAMINA: C2-C3: Unremarkable. No significant disc disease. No stenosis. C3-C4: Unremarkable. No significant disc disease. No stenosis. C4-C5: Unremarkable. No significant disc disease. No stenosis. C5-C6: Mild degenerative disease at C5-6. No stenosis. C6-C7: Unremarkable. No significant disc disease. No stenosis. C7-T1: Unremarkable. No significant disc disease. No stenosis. IMPRESSION: Mild degenerative disease at C5-6. No fracture, subluxation, or spinal stenosis is seen.
[2024-08-14] MEDS: KETOROLAC 15 MG/ML 1 ML VIAL IVP STA (01:12)
[2024-08-14] MEDS: DEXAMETHASONE SOD PHOSPHATE 10 MG/ML 1 ML VIAL IVP STA (01:13)
[2024-08-14] MEDS: MORPHINE SULFATE 4 MG/ML SYRINGE IVP STA (01:16)
[2024-08-14] MEDS: PROCHLORPERAZINE INJ 10 MG/2 ML VIAL IVP STA (01:18)
[2024-08-14 01:31] VITALS: BP 108/72; PULSE 88; RESP 16
[2024-08-14] MEDS: ONDANSETRON 4 MG ODT STARTER PACK 2 TAB BTL PO STA (01:43)
[2024-08-14] MEDS: IBUPROFEN 600 MG STARTER PACK 4 TAB BTL PO STA (01:43)
== END 2024-08-14 01:51 | disposition home or self-care (01) ==
LOC: EC 22:48
CPT/HCPCS: 70450; 72125; 96361; 96365; 96375; 96376; 99284